=== PATIENT | male | born 1990 | race African-American/Black ===

== ENCOUNTER 2017-10-17 09:46 | Emergency (ER) | payer MEDICAID ==
[~2017-10-17] VITALS: Ht 193 cm; Wt 91.0 kg
[2017-10-17 10:02] VITALS: BP 134/65
== END 2017-10-17 16:39 | disposition left against medical advice (07) ==
LOC: ER 10:29
DX: R10.9 Unspecified abdominal pain (principal); Z53.21 Procedure and treatment not carried out due to patient leaving prior to being seen by health care provider